=== PATIENT | female | born 1960 | race Caucasian/White ===

== ENCOUNTER 2024-11-24 13:17 | Emergency (ER) | payer SELFPAY | END 2024-11-24 18:21 | disposition home or self-care (01) | LOC: MW.ED 13:17 | DX: L03.115 Cellulitis of right lower limb (principal); Z88.0 Allergy status to penicillin; Z88.1 Allergy status to other antibiotic agents; Z87.891 Personal history of nicotine dependence | CPT/HCPCS: 93971-26-RT; 93971-RT; 99282; 99283 ==